=== PATIENT | female | born 2000 | race Caucasian/White ===

== ENCOUNTER 2024-01-06 22:00 | Emergency (ER) | payer SELFPAY ==
[2024-01-06 22:05] VITALS: BP 134/91; BMI 24.9
[2024-01-06 22:25] VITALS: BP 125/80
[2024-01-06 23:00] VITALS: BP 123/86
[2024-01-06] MEDS: ADACEL 0.5 ML IM (23:06)
--- NOTE | 2024-01-06 23:13 | ED.SKININJ ---
HPI-Injury
General
Chief Complaint: Skin Problem
Source: patient
Exam Limitations: none
Time Seen by Provider: 01/06/24 22:52
Nursing documentation reviewed up to this point in time: agreed with
History of Present Illness-Injury
Initial Injury comments:
Pleasant 23-year-old female that presents with laceration to her right hand. She broke a glass while at work and caused a laceration. She does not feel that there is a foreign body but she is unsure. Tetanus shot is not up-to-date.
Past History
Past History
ED Past Medical History: None
ED Past Surgical History: None
Review of Systems
Review of Systems
Allergies reviewed?: Yes
All Other Systems: ROS reviewed and negative except as documented in HPI and ROS
Constitutional: Reports no symptoms
EENT: Reports no symptoms
Respiratory: Reports no symptoms
Cardiac: Reports no symptoms
ABD/GI: Reports no symptoms
: Reports no symptoms
Musculoskeletal: Reports no symptoms
Skin: Reports other (Laceration)
Neurological: Reports no symptoms
Endocrine: Reports no symptoms
Hematologic/Lymphatic: Reports no symptoms
Psychiatric: Reports no symptoms
Skin Exam
Laceration
Left Palmar Hand:
Length in cm: 2
Orientation: vertical
Type of Laceration: simple
Any active bleeding?: no active bleeding
Distal skin color and temperature: normal-warm & good color
Normal distal neurovascular exam: Yes
Range of motion: full
Phy Exam
General Physical Exam
General Presentation: well appearing and mild distress
General age: appears stated age
General Skin: warm and dry
General Mental: alert
General Hydration: appears well hydrated
Cardiovascular Exam
Cardiovascular Exam: regular rate/rhythm and no edema
Pulmonary Exam
Pulmonary Exam: lungs clear and no respiratory distress
Neurological Exam
Neurological Exam: alert and oriented x3
Musculoskeletal Exam
Musculoskeletal Exam: full ROM and neuro vasc intact
Skin Exam
Skin Exam: normal color and laceration
Psychiatric Exam
Psychiatric Exam: normal mood/affect
Course
Orders/Labs/Results
Orders:
Orders
01/06/24 22:56
Tetanus/Diphth/Acelpertussis [Adacel] 0.5 ml IM .ONCE ONE
01/06/24 23:21
Hand, Right 3 View [CR Hand - Right Min 3 Views] Urgent
Comment:
Reason For Exam: possible fb
Vital Signs
Initial and Last Documented VS:
Initial Vital Signs
Temp Pulse Resp BP Pulse Ox
98.4 F 81 16 134/91 99
01/06/24 22:05 01/06/24 22:05 01/06/24 22:05 01/06/24 22:05 01/06/24 22:05
Last Documented Vital Signs
Temp Pulse Resp BP Pulse Ox
98.4 F 81 16 123/86 99
01/06/24 22:05 01/06/24 22:05 01/06/24 22:05 01/06/24 23:00 01/06/24 23:32
Procedures
Laceration Closure
Right Palmar Hand:
Status of Wound: clean
Size of Wound in cm: 2
Description of Wound Edges: sharp
Preparation: cleaned with soap & water and cleaned with saline
Anesthesia: 1% Lidocaine
Revision/Debridement: routine- no revision
Wound exploration: explored to base- no FB
Type of Closure: single layer closure
Skin Closure Material: 5-0 nylon
Number of sutures: 3
*Critical Care Note
Total Time (30-74mins, 75-104mins- exclusive of procedures): Not Applicable
Update Note
Update Note:
X-ray negative for foreign body
ED Attending Note
-
Portions of this chart may have been created with voice recognition software.� Occasional wrong word or��sound alike� substitutions may have occurred due to the inherent limitations of voice recognition software.
Discharge Plan
Departure
Patient Disposition: Home (Routine Discharge)
Date of Disposition: 01/07/24
Time of Disposition: 00:21
Patient with high blood pressure during this ER visit?: Yes
Condition: Good
Discharge Problem:
Laceration
Instructions: Wound Care (DC), BLOOD PRESSURE
Prescriptions:
No Action
nitrofurantoin monohyd/m-cryst 100 MG capsule
100 mg PO BID Qty: 17 0RF
phenazopyridine 100 MG tablet
100 mg PO TIDPRN PRN (Reason: burning with urination) Qty: 3 0RF
Referrals:
Amrita Chavez NP [Family Provider] -
Activity Restrictions/Additional Instructions:
Sutures can be removed in 5 to 7 days
It was a pleasure meeting you and taking part in your care. We hope for your continued healing and wellness.
Please read discharge instructions in their entirety. However, they are for general education and may not describe your exact diagnosis at discharge. Information on your ER visit and medical conditions were discussed with you along with appropriate
follow up information...
If indicated, please take your medications as instructed and indicated on discharge paperwork.
Please schedule a follow up appointment as directed. Call to schedule an appointment
Please return to the emergency department with ANY change in, persisting, or worsening of symptoms. If any of your symptoms do not improve, or persist, or become more severe within 6-12 hours, please return to the emergency department for further
care.
Please return to the emergency department if you develop a headache, neck pain/stiffness, fever greater than 100.4F, chest pain, shortness of breath, persistent nausea, vomiting, slurred speech, difficulty walking, numbness/tingling, weakness, signs
of infection or any other symptoms that are worrisome to you.
If you have any questions or concerns please do not hesitate to call the Hospital at or E-mail me directly at [email or web address]
Interventions
Interventions:
*Risk Screen - Suicide Last Done: 01/06/24 22:05
*General Assessment Last Done: 01/06/24 22:26
*Neglect/Abuse Screening Last Done: 01/06/24 22:05
ED- Fall Risk Assessment Last Done: 01/07/24 00:32
*Nursing Disposition Last Done: 01/07/24 00:33
ED-Skin Assessment Last Done: 01/06/24 22:26
Discharge Date and Time
Discharge Date/Time: 01/07/24 00:34
Print Language: BULGARIAN
== END 2024-01-07 00:34 | disposition home or self-care (01) ==
LOC: EMR 22:00
PROVIDERS: EMERGENCY PHYSICIAN Student in an Organized Health Care Education/Training Program; FAMILY PHYSICIAN Internal Medicine
DX: S61.411A Laceration without foreign body of right hand, initial encounter (principal); W25.XXXA Contact with sharp glass, initial encounter; Y99.0 Civilian activity done for income or pay; R03.0 Elevated blood-pressure reading, without diagnosis of hypertension; Z23 Encounter for immunization
CPT/HCPCS: 99283; 12001; 90471; 73130; 90715

== ENCOUNTER → 2024-07-29 13:07 | Outpatient (REF) | payer OTHER, SELFPAY | LOC: HWRAD 13:07 | PROVIDERS: ATTENDING PHYSICIAN Internal Medicine | DX: R06.09 Other forms of dyspnea (principal) | CPT/HCPCS: 71046 ==